=== PATIENT | male | born 1985 | race Caucasian/White ===

== ENCOUNTER 2017-12-27 09:55 | Emergency (ER) | payer MEDICAID ==
[~2017-12-27] VITALS: Ht 177.8 cm; Wt 83.0 kg
[2017-12-27 09:56] VITALS: BP 134/93
[2017-12-27] MEDS ORDERED: LIDOcaine 1.5% w/epinephrine 1:200,000 5ml ampul IJ ONE (10:45)
[2017-12-27] MEDS ORDERED: TETanus/Pertussis (Acell)/Diphther VAC/PF (Tdap-Adult) 0.5ml syringe IM ONE (10:45)
[2017-12-27] MEDS ORDERED: CEPH-571 PO (11:30)
== END 2017-12-27 11:35 | disposition home or self-care (01) ==
LOC: ER 09:55
DX: S61.012A Laceration without foreign body of left thumb without damage to nail, initial encounter (principal); W45.8XXA Other foreign body or object entering through skin, initial encounter; Y93.89 Activity, other specified; Y92.89 Other specified places as the place of occurrence of the external cause; Y99.8 Other external cause status
CPT/HCPCS: 12001; 99283; A6449; J3490